=== PATIENT | male | born 1955 | race African-American/Black ===

== ENCOUNTER 2017-02-19 08:42 | Day surgery (SDC) | payer MEDICAID ==
[~2017-02-19] VITALS: Ht 170.2 cm; Wt 65.3 kg
[2017-02-19] MEDS: MIDAZOLAM HCL 5 MG/5 ML VIAL ONE ×3 (10:11→10:17)
[2017-02-19] MEDS ORDERED: MEPERIDINE HCL/PF 100 MG/ML AMP ONE (10:12)
[2017-02-19] MEDS ORDERED: SIMETHICONE 40 MG/0.6 ML ML ONE (10:13)
[2017-02-19] MEDS ORDERED: DIPHENHYDRAMINE INJ 50 MG/ML VIAL ONE (11:11)
[2017-02-19 13:06] VITALS: BP_SYST 131
== END 2017-02-19 11:45 | disposition home or self-care (01) ==
LOC: SDS 08:42
PROVIDERS: ATTEND Internal Medicine Gastroenterology
DX: Z12.11 Encounter for screening for malignant neoplasm of colon (principal); D12.3 Benign neoplasm of transverse colon; D12.8 Benign neoplasm of rectum; K64.8 Other hemorrhoids; K29.70 Gastritis, unspecified, without bleeding; K44.9 Diaphragmatic hernia without obstruction or gangrene; I10 Essential (primary) hypertension
CPT/HCPCS: 36415; 43239; 45380; 45385; 87081; 88305; 88312; 88313; J1200; J2175; J2250

== ENCOUNTER 2022-05-13 11:18 | Emergency (ER) | payer OTHER, MEDICAID ==
[~2022-05-13] VITALS: Ht 177.8 cm; Wt 86.2 kg
--- NOTE | 2022-05-13 11:20 | NUR ---
Placed in room 01 . Placed on traffic monitor specialist, blood pressure machine and pulse oximeter. To gown for exam. Side rails up.
[2022-05-13 11:23] VITALS: BP_SYST 97
[2022-05-13 12:15] LABS: BASOPHILS # (AUTO) 0.1 K/uL (0.0-0.2); BASOPHILS % (AUTO) 1.1 % (0.0-2.0); EOSINOPHILS # (AUTO) 0.1 K/uL (0.0-0.4); EOSINOPHILS % (AUTO) 1.2 % (0.0-4.0); HEMATOCRIT 34.1 % (36-54); HEMOGLOBIN 11.6 g/dL (14.0-18.0); LYMPHOCYTES # (AUTO) 2.3 K/uL (1.0-5.5); LYMPHOCYTES % (AUTO) 23.9 % (20.5-51.5); MEAN CORPUSCULAR HEMOGLOBIN 37 pg (27-31); MEAN CORPUSCULAR HGB CONC 34 % (32-36); MEAN CORPUSCULAR VOLUME 108 fL (79.0-98.0); MONOCYTES # (AUTO) 1.1 K/uL (0.0-1.0); MONOCYTES % (AUTO) 11.3 % (1.7-9.3); NEUTROPHILS # (AUTO) 6.1 K/uL (1.8-7.7); NEUTROPHILS % (AUTO) 62.5 % (40.0-70.0); PLATELET COUNT (AUTO) 293 K/uL (130-430); RED BLOOD CELL COUNT(AUTO) 3.16 MIL/uL (4.2-6.2); RED CELL DISTRIBUTION WIDTH 15.2 % (9.0-15.0); WHITE BLOOD COUNT (AUTO) 9.7 K/uL (4.8-10.8)
[2022-05-13 12:44] LABS: CALCIUM 9.5 mg/dL (8.4-11.0); CREATININE 0.71 mg/dL (0.55-1.30); POTASSIUM 4.1 mmol/L (3.5-5.1)
[2022-05-13 12:50] LABS: ALBUMIN 2.8 g/dL (3.4-4.8); TOTAL BILIRUBIN 0.7 mg/dL (0.0-1.0)
--- NOTE | 2022-05-13 13:41 | NUR ---
CALLED PATIENTS MELISASHELLY 20 MINS TO COBOL DEVELOPER . PT VSS. BARTON NOTED.
[2022-05-13 14:21] VITALS: BP_SYST 97
--- NOTE | 2022-05-13 14:22 | NUR ---
Patient given written and verbal discharge instructions and verbalizes understanding. ER MD discussed with patient the results and treatment provided. Patient in stable condition. ID arm band removed. IV catheter removed intact and dressing applied, no active bleeding. no Rx given. Patient educated on pain management and to follow up with PMD. Pain Scale 0. Opportunity for questions provided and answered. Medication side effect fact sheet provided.
== END 2022-05-13 14:21 | disposition home or self-care (01) ==
LOC: SED 11:18
DX: G40.909 Epilepsy, unspecified, not intractable, without status epilepticus (principal); Z79.899 Other long term (current) drug therapy
CPT/HCPCS: 36415; 80053; 82542; 85025; 93005; 99284